=== PATIENT | male | born 1955 | race Caucasian/White ===

== ENCOUNTER 2018-12-09 06:10 | Day surgery (SDC) | payer BC ==
[~2018-12-09] VITALS: Ht 188 cm; Wt 80.7 kg
[~2018-12-09 06:10] MED LIST: ALL DAY ALLERGY10 M3 PO; ASPIR 8181 MG PO; GLUCOSAMINE DA1 EACH PO; LEVOTHYROXINE88 MCG PO; LIPITOR80 MG GT; RANITIDINE HCL300 M1 PO; VITAMIN D32000 UNI1 PO
--- NOTE | 2018-12-09 08:05 | NUR ---
ALL CHARTING COMPLETED BY HUNTER MARISCAL, COTTON FARMER WAS REVIEWED BY LANG WHITTINGTON RN.
--- NOTE | 2018-12-09 08:17 | NUR ---
12/09/18 0817 Thao José SN [id number] ARRIVES TO PACU. RESPIRATIONS EVEN AND UNLABORED. 02 SAT IN HIGH 90'S ON 3 LITERS VIA NC. PT TOO DROWSY TO RESPOND TO QUESTIONS AT THIS TIME. 0808- PT BEGINNING TO BECOME MORE ALERT. RESPIRATIONS EVEN AND UNLABORED. 02 SAT HIGH 90'S ON 3 LITERS VIA NC. DENIES PAIN, DIZZINES, AND NAUSEA AT THIS TIME. 0810- PT OXYGEN REMOVED AT THIS TIME. TOLERATING WELL. RESPIRATIONS EVEN UNLABORED. 02 SAT 95 PERCENT ON RA. DENIES PAIN, NAUSEA, AND DIZZINESS AT THIS TIME.
--- NOTE | 2018-12-09 10:17 | NUR ---
PT IS ALERT, ORIENTED AND SUPPORTED BY HIS PERFECTO. PT SEEMED PREPARED, HAD FEW QUESTIONS. WANTS STAFF TO CALL HER WHEN PT IS READY TO DC. OR STAFF IN FOR PT-EXTENDED A BLESSING, WILL FOLLOW NEEDED
--- NOTE | 2018-12-11 10:55 | OR ---
[facility] [address], [place] [address] Signed DATE OF OPERATION: 12/09/2018 SURGEON: Dieter Perea MD PREOPERATIVE DIAGNOSES: 1. Longstanding gastroesophageal reflux. 2. Family history of colon cancer in paternal grandfather. POSTOPERATIVE DIAGNOSES: 1. Hiatal hernia with mild chronic esophagitis. 2. Diverticulosis of sigmoid and left colon. PROCEDURE: 1. Esophagogastroduodenoscopy with biopsy. 2. Total colonoscopy to cecum. ANESTHESIA: Intravenous sedation, fentanyl 200 mcg, Versed 7 mg total. 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 He has undergone upper endoscopy and colonoscopy by me in the past. He is not having dysphagia, but surveillance for progression to Pascual's esophagus or other abnormality has been recommended and on that basis upper endoscopy is considered. Additionally, he has family history of colon cancer in a maternal grandfather. He is free of bleeding, diarrhea or constipation problems. He was admitted at this time to undergo upper endoscopy and colonoscopy. He understands the risks of bleeding, infection, perforation, and so on. FINDINGS: On upper endoscopy he did have a moderate-sized hiatal hernia, but no evidence of Pascual's epithelium or acute inflammation or stricture. Stomach and duodenum were normal. CLOtest was -30 minutes post procedure. On colonoscopy, the prep was quite good. Complete colonoscopy was undertaken to the cecum. There were diverticula of the sigmoid and left colon. There is no sign of polyps or inflammation. Electronically Signed By: DIETER PEREA MD 12/11/18 1055 PATIENT NAME: LAKISHA PRAJAPATICECILIA OPERATIVE REPORT DATE OF : 53 REPORT #: [id number] PHYSICIAN: DIETER PEREA MD PCP: JULIETH WADE PAC REPORT IS CONFIDENTIAL AND NOT TO BE RELEASED WITHOUT AUTHORIZATION [facility] [address], [place] [address] Signed PROCEDURE: The patient was brought to the endoscopy suite and given topical Hurricaine spray hypopharyngeal anesthesia and placed in lateral decubitus position. He was given intravenous sedation to the point of slurred speech and nystagmus with full cardiopulmonary monitoring. An Olympus video upper endoscope was passed in the hypopharynx. The vocal cords appeared normal. The scope was advanced into the esophagus without problem, throughout its length it was normal. There was mild distal esophagitis that was chronic. There was no sign of Pascual's epithelium. Scope was advanced to the stomach, which was insufflated with air. Rugal folds were normal. Antral motility was normal. The pylorus was normal. Scope was passed through it into the duodenum, which was also normal. Biopsies were taken of the duodenum to assess for celiac disease and subsequently the antrum for both RATNA and pathologic testing. Retroflexed view confirmed a hiatal hernia, which was small to moderate in size. The scope was withdrawn to the distal esophagus. Narrow band imaging was undertaken showing no evidence of Pascual's epithelium. Biopsies were taken of the mucosa, which showed chronic inflammation, but no acute inflammation. No stricture or other abnormality. Careful withdrawal of scope showed no sign of other problem, the midesophagus was biopsied as well. The scope was removed after visualizing normal vocal cords. Plans were then made for colonoscopy. The table was rotated and additional sedation given. Digital rectal examination was performed which was normal. Careful attention to the prostate showed a normal mid prostatic fissure. No sign of nodule. An Olympus video colonoscope was passed into the rectum and manipulated throughout the colon without problem and ultimately intubating the cecum itself. The ileocecal valve and appendiceal orifice were normal. The scope was withdrawn from that point and careful examination showed no sign of abnormality other than diverticular change of the sigmoid and left colon. Retroflexed view of the rectum was normal. Scope was removed. The patient was taken to recovery room in good condition. CONCLUDING DIAGNOSES: 1. Small to moderate hiatal hernia with mild chronic esophagitis. No sign of Pascual's epithelium. 2. Normal colon to the cecum except for diverticulosis. PLAN: Recommend continued use of Zantac as currently undertaken for symptom control. As regards to colonoscopy, consideration for repeat in 5 years, certainly no more than 10 given family history and certainly sooner if symptoms should occur. Electronically Signed By: DIETER PEREA MD 12/11/18 1055 PATIENT NAME: CECILIA BANUELOS MD OPERATIVE REPORT DATE OF : 53 REPORT #: [id number] PHYSICIAN: DIETER PEREA MD PCP: JULIETH WADE REPORT IS CONFIDENTIAL AND NOT TO BE RELEASED WITHOUT AUTHORIZATION [facility] [address] [place] [id number] Signed Dieter Perea MD JM/MODL /[id number] cc: DO Cecilia Navarro MD Copies: NU BARNETT JONATHAN MD ~ Electronically Signed By: DIETER PEREA MD 12/11/18 1055 PATIENT NAME: CECILIA BANUELOS MD OPERATIVE REPORT DATE OF : 53 REPORT #: [id number] PHYSICIAN: DIETER PEREA MD PCP: JULIETH WADE PAC REPORT IS CONFIDENTIAL AND NOT TO BE RELEASED WITHOUT AUTHORIZATION
== END 2018-12-09 08:55 | disposition home or self-care (01) ==
LOC: OPS 06:10 → DS 06:10 → OPS 06:45
PROVIDERS: Surgery
PROC: 0DB38ZX Excision of Lower Esophagus, Via Natural or Artificial Opening Endoscopic, Diagnostic (ICD-10-PCS; 2018-12-09)
PROC: 0DB58ZX Excision of Esophagus, Via Natural or Artificial Opening Endoscopic, Diagnostic (ICD-10-PCS; 2018-12-09)
PROC: 0DJD8ZZ Inspection of Lower Intestinal Tract, Via Natural or Artificial Opening Endoscopic (ICD-10-PCS; 2018-12-09)
PROC: 0DB98ZX Excision of Duodenum, Via Natural or Artificial Opening Endoscopic, Diagnostic (ICD-10-PCS; principal; 2018-12-09 06:45)
PROC: 0DB78ZX Excision of Stomach, Pylorus, Via Natural or Artificial Opening Endoscopic, Diagnostic (ICD-10-PCS; 2018-12-09 06:45)
DX: Z12.11 Encounter for screening for malignant neoplasm of colon (principal); K57.30 Diverticulosis of large intestine without perforation or abscess without bleeding; K20.9 Esophagitis, unspecified; K21.9 Gastro-esophageal reflux disease without esophagitis; K44.9 Diaphragmatic hernia without obstruction or gangrene; E78.5 Hyperlipidemia, unspecified; E03.9 Hypothyroidism, unspecified; Z79.899 Other long term (current) drug therapy; Z79.82 Long term (current) use of aspirin; Z80.0 Family history of malignant neoplasm of digestive organs
CPT/HCPCS: 99153; G0500; J2250; J3010; J7120